=== PATIENT | female | born 1950 | race Caucasian/White ===

== ENCOUNTER 2017-06-15 12:07 | Inpatient (IN) | payer OTHER ==
[~2017-06-15] VITALS: Ht 165.1 cm; Wt 46.7 kg
[~2017-06-15 12:07] MED LIST: ALPRAZOLAM0.25 M1; ALPRAZOLAM0.25 M1 PO; AMBIEN5 MG PO; CIPRO500 MG PO; DEPAKOTE ER250 MG PO; EFFEXOR XR 3737.5 MG PO; GABAPENTIN300 MG PO; LISINOPRIL2.5 MG PO; LITHIUM CARBON300 M1 PO; MELATONIN3 MG PO; METOPROLOL SUCC25 MG PO; METOPROLOL TART25 MG PO; MIRALAX17 GM PO; PAXIL CR12.5 MG PO; REMERON15 M1 PO; SILENOR3 MG PO; ULTRAM50 MG PO; VALTREX500 MG PO; ZYPREXA5 MG PO; [UNRECOGNIZED DRUG - OTHER] PO
[2017-06-15] MEDS ORDERED: SODIUM CHLORIDE 0.9% 1000ML 1,000 ML IV ONE (19:30)
[2017-06-15 19:50] LABS: BASOPHILS % 0.4 % (0.0-1.0); EOSINOPHILS % 0.5 % (0.0-6.0); HEMATOCRIT 32.4 % (34.2-44.1); HEMOGLOBIN 10.7 g/dL (12.0-16.0); LYMPHOCYTES # (AUTO) 0.5 (1.0-3.2); LYMPHOCYTES % 8.1 % (18.0-39.1); MEAN CORPUSCULAR HEMOGLOBIN 30.6 pg (28-32); MEAN CORPUSCULAR VOLUME 92.6 fL (81-99); MONOCYTES # (AUTO) 1.6 (0.2-0.8); NEUTROPHILS # (AUTO) 2.6 (2.1-6.9); NEUTROPHILS % 47.8 % (38.7-80.0); PLATELET COUNT 107 x10e3/uL (140-360); RED CELL DISTRIBUTION WIDTH 14.9 % (11.7-14.4)
[2017-06-15 20:10] LABS: ALANINE AMINOTRANSFERASE 29 IU/L (0-55); ALBUMIN 2.7 g/dL (3.5-5.0); ALBUMIN/GLOBULIN RATIO 0.8 (0.8-2.0); ALKALINE PHOSPHATASE 234 IU/L (40-150); ANION GAP 14.1 mmol/L (8-16); BLOOD UREA NITROGEN 14 mg/dL (7-26); BUN/CREATININE RATIO 19 (6-25); CALCIUM 9.7 mg/dL (8.4-10.2); CARBON DIOXIDE 24 mmol/L (22-29); CHLORIDE 101 mmol/L (98-107); CREATINE KINASE 39 IU/L (29-168); CREATININE, SERUM 0.75 mg/dL (0.57-1.11); EST GLOMERULAR FILTRATION RATE > 60 ML/MIN (60-); GLUCOSE 114 mg/dL (74-118); POTASSIUM 4.1 mmol/L (3.5-5.1); SODIUM 135 mmol/L (136-145)
[2017-06-15 20:16] LABS: BILIRUBIN,URINE NEGATIVE (NEGATIVE); CLARITY,URINE CLEAR (CLEAR); COLOR,URINE YELLOW (YELLOW); KETONES,URINE NEGATIVE (NEGATIVE); LEUKOCYTE ESTERASE ,URINE 1+ (NEGATIVE); NITRITE,URINE NEGATIVE (NEGATIVE); PROTEIN,URINE DIPSTICK NEGATIVE (NEGATIVE); URINE UROBILINOGEN 0.2 mg/dL (0.2 - 1)
[2017-06-15 20:28] LABS: EPITHELIAL CELLS,URINE RARE /LPF; RENAL EPITHELIAL CELLS,URINE FEW
[2017-06-15 20:32] LABS: FREE THYROXINE INDEX 2.3867 (1.4-3.8); THYROID STIMULATING HORMONE 0.941 uIU/mL (0.350-4.940)
[2017-06-15 21:09] LABS: EOSINOPHILS % (MANUAL) 1 % (0-7); HYPOCHROMASIA SLIGHT; LYMPHOCYTES % (MANUAL) 12 % (19-48); METAMYELOCYTES % (MANUAL) 3 % (0-0); MONOCYTES % (MANUAL) 18 % (3.4-9.0); NEUTROPHILS % (MANUAL) 65 % (40-74); RBC MORPHOLOGY COMMENT NORMAL; STOMATOCYTES SLIGHT
[2017-06-15 21:10] LABS: PLATELET ESTIMATE SLIGHTLY DECREASED; PLATELET MORPHOLOGY COMMENT NORMAL
[2017-06-15] MEDS ORDERED: ACETAMINOPHEN 325 MG TAB PO STA (21:14)
--- NOTE | 2017-06-15 21:44 | Diagnostic Imaging Report ---
EXAM: CHEST SINGLE (NOT PORTABLE), AP 1 view INDICATION: Nerve pain, fell a few weeks ago COMPARISON: PA and lateral view of the chest March 11, 2016 FINDINGS: LINES/TUBES: Stable position right internal jugular vein chest port. Interval placement of left approach triple lead cardiac device. LUNGS: No consolidations or edema. Stable mild biapical pleural-parenchymal scarring. PLEURA: No effusions or pneumothorax. HEART AND MEDIASTINUM: Normal size and contour. BONES AND SOFT TISSUES: No acute findings. IMPRESSION: No acute thoracic abnormality. Signed by: Dr. Khadra Matson M.D. on 06/15/2017 9:40 PM
--- NOTE | 2017-06-15 21:49 | Diagnostic Imaging Report ---
EXAM: CERVICAL 3 VIEWS, AP, lateral and open mouth odontoid view DATE: 06/15/2017 8:10 PM Time stamp on exam: 2018 hours INDICATION: Follow a few weeks ago, nerve pain COMPARISON: CT of the neck August 05, 2016 FINDINGS: BONES: On the lateral view, the cervical spine is visualized from the skull base to C7. Limited odontoid view. Stable grade 1 anterolisthesis of C3 on C4 and C4 on C5. No displaced fractures. No lytic or blastic lesions. DISCS: Stable marked degenerative disc predominantly C3-C7. JOINTS: The facet joints are unremarkable. SOFT TISSUES: Partially visualized right upper chest port and left approach cardiac device. IMPRESSION: No acute cervical spine radiographic findings. If there is clinical concern for nerve compression given patient's underlying significant degenerative changes, consider MRI of the cervical spine. Signed by: Dr. Khadra Matson M.D. on 06/15/2017 9:45 PM
--- NOTE | 2017-06-15 21:57 | Diagnostic Imaging Report ---
EXAM: THORACIC SPINE 2VW, LUMBAR 3 VIEW, AP and lateral and coned lateral view DATE: 06/15/2017 7:19 PM Time stamp on exam: 2035 hours INDICATION: Fell a few weeks ago, now losing feeling in hands and in pain COMPARISON: PA and lateral view of the chest March 11, [address] of the abdomen and pelvis October 21, 2016 FINDINGS: BONES: There are 5 lumbar-type vertebral bodies. Age-indeterminate compression fracture of L1 vertebral body with approximately 50% loss of vertebral body height. Stable mild loss of height of the L4 superior endplate. DISCS: The disc-spaces are well-maintained. JOINTS: The facet joints are unremarkable. SOFT TISSUES: Right upper chest port and left approach cardiac device. IMPRESSION: Age indeterminant compression fracture of the L1 vertebral body with approximately 50% loss of vertebral body height. This is a new finding since PA and lateral view of the chest March 11, 2016. Signed by: Dr. Khadra Matson M.D. on 06/15/2017 9:53 PM
[2017-06-15] MEDS ORDERED: CEFTRIAXONE SOD 1 GM VIAL IV SCH (22:15)
[2017-06-15] MEDS ORDERED: SODIUM CHLORIDE 0.9% 1000ML 1,000 ML IV SCH (22:55)
[2017-06-15] MEDS ORDERED: ACETAMINOPHEN 325 MG TAB PO PRN (23:00)
[2017-06-15] MEDS ORDERED: ONDANSETRON HCL INJ 2 MG/ML VIAL IV PRN (23:00)
--- NOTE | 2017-06-15 23:43 | Diagnostic Imaging Report ---
Examination: CT LUMBAR SPINE WITHOUT CONTRAST History: Fall 3 weeks ago. Low back pain. Comparison studies: X-ray of lumbar spine performed June 15, 2017. Technique: Axial images were obtained through the lumbar spine from 1. Coronal and sagittal reconstructions obtained from the axial data. Intravenous contrast: None Findings: The usual 5 non-rib bearing lumbar vertebral bodies are present. Alignment: Normal lordosis. No scoliosis. Soft tissues: No abnormalities. Paraspinal muscles: Unremarkable. Sacroiliac joints: No degenerative changes. Vertebrae: No infection or neoplasm. Acute to subacute fracture of the L1 vertebral body with approximately 66% height loss. There is retropulsion of the posterior superior endplate by approximately 4.5 mm, which results in mild canal stenosis. There is a superior endplate Schmorl's node of the L4 vertebral body. Degenerative changes: L1-L2: No abnormalities. L2-L3: No abnormalities. L3-L4: No abnormalities. L4-L5: Mild diffuse disc bulge results in mild bilateral neural foraminal narrowing. No canal stenosis. L5-S1: Grade I anterolisthesis without pars defect. Uncovering of a mild diffuse disc bulge results in mild bilateral neural foraminal narrowing. No canal stenosis. IMPRESSION: 1. Acute subacute fracture of the L1 vertebral body with proximally 66% loss of height and mild canal stenosis at L1 due to bony retropulsion. 2. Degenerative changes at L4-5 and L5-S1, as above. Signed by: Dr. Yoana Salinas M.D. on 06/15/2017 11:40 PM
[2017-06-16] VITALS (8 sets, daily range): BP systolic 99–117; BP diastolic 54–63
--- OUTSIDE RECORDS SUMMARY | 2017-06-16 00:06 | XMS REPORT ---
[facility] Address Unknown Phone Unavailable Care Team Providers Care Associate Professor Of Counseling Name Role Phone MARTIN BRANHAM Unavailable Unavailable Problems This patient has no known problems. Allergies, Adverse Reactions, Alerts This patient has no known allergies or adverse reactions. Medications This patient has no known medications. Results Test Description Test Time Test Comments Text Results Atomic Results Result Comments CT LUMBAR SPINE WO [place] [address] Patient Name: MARQUES WOLF MR #: [id number] : 1950 Age/Sex: 67/F Req #: [id number] Adm Physician: Ordered by: WILEY BRADSHAW MD Report # : [id number] Location: ER Room/Bed: Procedure: [id number] CT/CT LUMBAR SPINE WO Exam Date: Exam Time: REPORT STATUS: Signed Examination: CT LUMBAR SPINE WITHOUT CONTRAST History: Fall 3 weeks ago. Low back pain. Comparison studies: X-ray of lumbar spine performed June 15, 2017. Technique: Axial images were obtained through the lumbar spine from 1. Coronal and sagittal reconstructions obtained from the axial data. Intravenous contrast: None Findings: The usual 5 non-rib bearing lumbar vertebral bodies are present. Alignment: Normal lordosis. No scoliosis. Soft tissues: No abnormalities. Paraspinal muscles: Unremarkable. Sacroiliac joints: No degenerative changes. Vertebrae: No infection or neoplasm. Acute to subacute fracture of the L1 vertebral body with approximately 66% height loss. There is retropulsion of the posterior superior endplate by approximately 4.5 mm, which results in mild canal stenosis. There is a superior endplate Schmorl's node of the L4 vertebral body. Degenerative changes: L1-L2: No abnormalities. L2-L3: No abnormalities. L3-L4: No abnormalities. L4-L5: Mild diffuse disc bulge results in mild bilateral neural foraminal narrowing. No canal stenosis. L5-S1: Grade I anterolisthesis without pars defect. Uncovering of a mild diffuse disc bulge results in mild bilateral neural foraminal narrowing. No canal stenosis. IMPRESSION: 1. Acute subacute fracture of the L1 vertebral body with proximally 66% loss of height and mild canal stenosis at L1 due to bony retropulsion. 2. Degenerative changes at L4-5 and L5-S1, as above. Signed by: Dr. Yoana Salinas M.D. on 06/15/2017 11:40 PM Dictated By: YOANA TURCIOS MD 39 COPY TO: WILEY BRADSHAW MD CERVICAL 3 VIEWS [place] [address] Patient Name: MARQUES WOLF MR #: [id number] : 1950 Age/Sex: 67/F Req #: [id number] [facility] Physician: Ordered by: WILEY BRADSHAW MD Report #: [id number] Location: ER Room/Bed: Procedure: [id number] DX/CERVICAL 3 VIEWS Exam Date: 06/15/17 Exam Time: 2035 REPORT STATUS: Signed EXAM: CERVICAL 3 VIEWS, AP, lateral and open mouth odontoid view DATE: 06/15/2017 8:10 PM Time stamp on exam: 2018 hours INDICATION: Follow a few weeks ago, nerve pain COMPARISON: CT of the neck August 05, 2016 FINDINGS: BONES: On the lateral view, the cervical spine is visualized from the skull base to C7. Limited odontoid view. Stable grade 1 anterolisthesis of C3 on C4 and C4 on C5. No displaced fractures. No lytic or blastic lesions. DISCS: Stable marked degenerative disc predominantly C3-C7. JOINTS: The facet joints are unremarkable. SOFT TISSUES: Partially visualized right upper chest port and left approach cardiac device. IMPRESSION: No acute cervical spine radiographic findings. If there is clinical concern for nerve compression given patient's underlying significant degenerative changes, consider MRI of the cervical spine. Signed by: Dr. Avila Matson M.D. on 06/15/2017 9:45 PM Dictated By: AVILA MATSON MD 44 Transcribed By: SUDHIR on 06/15/172144 COPY TO: WILEY BRADSHAW MD CHEST SINGLE (NOT PORTABLE) [place] [address] Patient Name: MARQUES WOLF MR #: [id number] : 1950 Age/Sex: 67/F Req #: [id number] Adm Physician: Ordered by: WILEY BRADSHAW MD Report #: [id number] Location: ER Room/Bed: ___ Procedure: [id number] DX/CHEST SINGLE (NOT PORTABLE) Exam Date: 06/15/17 Exam Time: 2035 REPORT STATUS: Signed EXAM : CHEST SINGLE (NOT PORTABLE), AP 1 view INDICATION: Nerve pain, fell a few weeks ago COMPARISON: PA and lateral view of the chest March 11, 2016 FINDINGS: LINES/TUBES: Stable position right internal jugular vein chest port. Interval placement of left approach triple lead cardiac device. LUNGS: No consolidations or edema. Stable mild biapical pleural-parenchymal scarring. PLEURA: No effusions or pneumothorax. HEART AND MEDIASTINUM : Normal size and contour. BONES AND SOFT TISSUES: No acute findings. IMPRESSION: No acute thoracic abnormality. Signed by: Dr. Avila Matson M.D. on 06/15/2017 9:40 PM Dictated By: AVILA MATSON MD 39 Transcribed By: SUDHIR on 06/15/172139 COPY TO: WILEY BRADSHAW MD LUMBAR 3 VIEW [place] [address] Patient Name: MARQUES WOLF MR #: [id number] : 1950 Age/Sex: 67/F Req #: [id number] Adm Physician: Ordered by: WILEY BRADSHAW MD Report #: [id number] Location: ER Room/Bed: Procedure: [id number] DX/LUMBAR 3 VIEW Exam Date: 06/15/17 Exam Time : 2035 REPORT STATUS: Signed EXAM: THORACIC SPINE 2VW, LUMBAR 3 VIEW, AP and lateral and coned lateral view DATE: 06/15/2017 7:19 PM Time stamp on exam: 2035 hours INDICATION: Fell a few weeks ago, now losing feeling in hands and in pain COMPARISON: PA and lateral view of the chest March 11, [address] of the abdomen and pelvis October 21, 2016 FINDINGS: BONES : There are 5 lumbar-type vertebral bodies. Age-indeterminate compression fracture of L1 vertebral body with approximately 50% loss of vertebral body height. Stable mild loss of height of the L4 superior endplate. DISCS: The disc-spaces are well-maintained. JOINTS: The facet joints are unremarkable. SOFT TISSUES: Right upper chest port and left approach cardiac device. IMPRESSION: Age indeterminant compression fracture of the L1 vertebral body with approximately 50% loss of vertebral body height. This is a new finding since PA and lateral view of the chest March 11, 2016. Signed by: Dr. Avila Matson M.D. on 06/15/2017 9:53 PM Dictated By: AVILA MATSON MD 52 Transcribed By: SUDHIR on 06/15/172152 COPY TO: WILEY BRADSHAW MD THORACIC SPINE 2VW [place] [address] Patient Name: MARQUES WOLF MR #: [id number] : 1950 Age/Sex: 67/F Req #: [id number] Adm Physician: Ordered by: WILEY BRADSHAW MD Report # : [id number] Location: ER Room/Bed: Procedure: [id number] DX/THORACIC SPINE 2VW Exam Date: 06/15/17 Exam Time: 2035 REPORT STATUS: Signed EXAM: THORACIC SPINE 2VW, LUMBAR 3 VIEW, AP and lateral and coned lateral view DATE: 06/15/2017 7:19 PM Time stamp on exam: 2035 hours INDICATION: Fell a few weeks ago, now losing feeling in hands and in pain COMPARISON: PA and lateral view of the chest March 11, [address] of the abdomen and pelvis October 21, 2016 FINDINGS : BONES: There are 5 lumbar-type vertebral bodies. Age-indeterminate compression fracture of L1 vertebral body with approximately 50% loss of vertebral body height. Stable mild loss of height of the L4 superior endplate. DISCS: The disc-spaces are well-maintained. JOINTS: The facet joints are unremarkable. SOFT TISSUES: Right upper chest port and left approach cardiac device. IMPRESSION: Age indeterminant compression fracture of the L1 vertebral body with approximately 50% loss of vertebral body height. This is a new finding since PA and lateral view of the chest March 11, 2016. Signed by: Dr. Avila Matson M.D. on 06/15/2017 9 :53 PM Dictated By: AVILA MATSON MD 52 Transcribed By: SUDHIR on 06/15/172152 COPY TO: WILEY BRADSHAW MD
[2017-06-16] MEDS ORDERED: TRAMADOL HCL 50 MG TAB PO PRN (00:30)
[2017-06-16] MEDS ORDERED: TRAMADOL HCL 50 MG TAB PO ONE (00:30)
[2017-06-16] MEDS ORDERED: TRAMADOL HCL 50 MG TAB ONE (00:44)
[2017-06-16] MEDS ORDERED: OLANZAPINE15 MG PO (02:28)
[2017-06-16] MEDS ORDERED: LISINOPRIL 2.5 MG TAB PO SCH (09:00)
[2017-06-16] MEDS ORDERED: VALACYCLOVIR HCL 500 MG TAB PO SCH (09:00)
[2017-06-16] MEDS ORDERED: METOPROLOL SUCCINATE 25 MG TAB XL PO SCH ×2 (09:00→21:00)
[2017-06-16] MEDS ORDERED: VENLAFAXINE HCL 37.5MG XR CAP PO SCH (09:00)
[2017-06-16 09:22] LABS: BASOPHILS % 0.5 % (0.0-1.0); EOSINOPHILS % 0.7 % (0.0-6.0); HEMATOCRIT 28.5 % (34.2-44.1); HEMOGLOBIN 9.4 g/dL (12.0-16.0); LYMPHOCYTES # (AUTO) 0.7 (1.0-3.2); LYMPHOCYTES % 11.5 % (18.0-39.1); MEAN CORPUSCULAR HEMOGLOBIN 30.7 pg (28-32); MEAN CORPUSCULAR VOLUME 93.1 fL (81-99); MONOCYTES # (AUTO) 1.7 (0.2-0.8); MONOCYTES % 29.7 % (4.4-11.3); NEUTROPHILS # (AUTO) 2.4 (2.1-6.9); NEUTROPHILS % 42.9 % (38.7-80.0); PLATELET COUNT 93 x10e3/uL (140-360); RED BLOOD COUNT 3.06 x10e6/uL (3.6-5.1)
[2017-06-16 09:48] LABS: ALANINE AMINOTRANSFERASE 26 IU/L (0-55); ALBUMIN 2.1 g/dL (3.5-5.0); ALBUMIN/GLOBULIN RATIO 0.7 (0.8-2.0); ALKALINE PHOSPHATASE 191 IU/L (40-150); ANION GAP 9.8 mmol/L (8-16); BLOOD UREA NITROGEN 11 mg/dL (7-26); BUN/CREATININE RATIO 16 (6-25); CALCIUM 8.8 mg/dL (8.4-10.2); CARBON DIOXIDE 23 mmol/L (22-29); CHLORIDE 106 mmol/L (98-107); CREATININE, SERUM 0.68 mg/dL (0.57-1.11); EST GLOMERULAR FILTRATION RATE > 60 ML/MIN (60-); GLUCOSE 129 mg/dL (74-118); POTASSIUM 3.8 mmol/L (3.5-5.1); SODIUM 135 mmol/L (136-145)
[2017-06-16] MEDS ORDERED: VENLAFAXINE HCL 75 MG CAPCR PO SCH (10:00)
[2017-06-16] MEDS: GABAPENTIN 100 MG CAP PO SCH ×3 (10:04→20:46)
[2017-06-16] MEDS: SENNOSIDES 8.6 MG TAB PO SCH ×2 (10:04→16:02)
[2017-06-16] MEDS ORDERED: FLUVOXAMINE MAL25 MG PO (10:21)
[2017-06-16] MEDS: HYDROCODONE/APAP 7.5MG-325MG 1 EA TAB PO PRN ×2 (10:30→14:59)
--- NOTE | 2017-06-16 10:49 | History and Physical ---
PRIMARY CARE PHYSICIAN: Dr. Vicente Cisneros CHIEF COMPLAINT: Status post fall approximately 4 weeks ago with progressive pain, subsequently diagnosed with compression fracture of L1 with 50% to 60% compression of lumbar spine. This is a 67-year-old female with B-cell lymphoma. The patient has had chemotherapy in the past. The last was in January. The patient also has a history of psychiatric disorder. She is on multiple medications from a psychiatrist. The patient came in because of intractable pain to the lumbar spine area. The patient had a lumbar spine x-ray and subsequent CT scan of the L-spine. The CT scan of the lumbar spine showed the patient had acute suspected fracture of L1 vertebral body with approximately 50% height loss. There is also retropulsion of the posterior inferior endplate by approximately 4.5 mm which results in mild canal stenosis. There is also superior endplate of the L4 vertebral body. The patient is stable other than the pain at this time. PAST MEDICAL HISTORY: B-cell lymphoma. Cardiomyopathy with left upper chest biventricular defibrillator. Major depression. Chronic anemia. Progressive weight loss, hypertension, insomnia, peripheral neuropathy bilaterally. Bipolar, schizophrenia. PAST SURGICAL HISTORY: Neck mass biopsy. Biventricular defibrillator placement, left upper chest area. Port-A-Cath placement of right upper chest. SOCIAL HISTORY: The patient lives at home with her daughter. She does not smoke or use recreational drugs. ALLERGIES: NO KNOWN ALLERGIES. HOME MEDICATIONS: List reviewed. REVIEW OF SYSTEMS: As mentioned above. PHYSICAL EXAMINATION VITAL SIGNS: T-max was 100.8, blood pressure 129/80, pulse rate 94, respirations 22. GENERAL: The patient is in no acute distress. She is awake. There is persistent pain. HEENT: Normocephalic, atraumatic, anicteric. NECK: Supple grossly. PULMONARY: Clear. CARDIOVASCULAR: Tachycardia. Left upper chest biventricular ICD. Right upper chest Port-A-Cath. ABDOMEN: Soft and unremarkable. EXTREMITIES: No cyanosis or edema. NEUROLOGIC: The patient moves all extremities with suspected paresthesia. LABORATORY: Chemistry: Sodium 135, potassium 4.1, chloride 101, bicarb 24, BUN 14, creatinine 0.7, glucose 114. AST 77, ALT 29, alkaline phosphatase 334. WBC 5.5, hemoglobin 10.7, hematocrit 32, platelets 107. Urinalysis WBC of 10. Blood culture times 2 sets pending. Urine culture was not done. IMAGING: As mentioned above. IMPRESSION 1. Suspected acute L1 compression fracture with 50% height loss. 2. Fever, most likely combination of positive B-cell lymphoma and urinary tract infection. 3. Intractable pain as above. 4. Baseline congestive heart failure. 5. Possible schizophrenia. 6. Status post implantable cardioverter-defibrillator placement. PLAN: Continue with antibiotic. Consultation with interventional radiology for possible kyphoplasty. Pulmonary . PT and OT. Pain management. Will monitor the patient closely during this admission. The patient will be admitted. Job#: [id number]
[2017-06-16] MEDS: MORPHINE SULFATE 2 MG/ML SYR IV PRN ×2 (11:32→16:29)
[2017-06-16 16:05] LABS: INR 1.23; PROTHROMBIN TIME 14.6 seconds (11.9-14.5)
[2017-06-16 16:06] LABS: PARTIAL THROMBOPLASTIN TIME 36.3 seconds (23.8-35.5)
[2017-06-16] MEDS ORDERED: OLANZAPINE 5 MG TAB PO SCH (21:00)
[2017-06-16] MEDS ORDERED: ZOLPIDEM TARTRATE 5 MG TAB PO PRN (21:00)
[2017-06-16] MEDS ORDERED: OLANZAPINE 15 MG PO SCH (21:00)
[2017-06-16] MEDS: ACETAMINOPHEN 325 MG TAB PO PRN (23:16)
[2017-06-16] MEDS: CEFTRIAXONE SOD 1 GM VIAL IV SCH (23:16)
[2017-06-17] VITALS: BP 143/71
[2017-06-17] MEDS: MORPHINE SULFATE 2 MG/ML SYR IV PRN (00:46)
[2017-06-17 04:00] VITALS: BP 105/62
[2017-06-17 08:00] VITALS: BP 116/66
[2017-06-17 08:55] VITALS: BP 116/66
[2017-06-17] MEDS: ACETAMINOPHEN 325 MG TAB PO PRN (08:55)
[2017-06-17] MEDS: SENNOSIDES 8.6 MG TAB PO SCH ×2 (09:00→18:30)
[2017-06-17] MEDS: GABAPENTIN 100 MG CAP PO SCH ×3 (09:00→21:00)
[2017-06-17] MEDS ORDERED: CEFAZOLIN SOD 1 GM/NS 50ML 50 ML IV ONE (10:00)
[2017-06-17] MEDS ORDERED: BUPIVACAINE 0.25% 30ML SDV INJ ONE (10:02)
[2017-06-17] MEDS ORDERED: BETAMETHASONE DISODIUM PHOS 6 MG/ML VIAL ONE (10:02)
[2017-06-17] MEDS ORDERED: CEFAZOLIN SOD 1 GM VIAL IV NR (10:30)
[2017-06-17] MEDS ORDERED: SODIUM CHLORIDE 0.9% 500ML 1,000 ML ONE (10:56)
[2017-06-17] MEDS ORDERED: LIDOCAINE HCL 2% LOCAL 20 ML VIAL ONE (10:56)
[2017-06-17] MEDS ORDERED: MIDAZOLAM HCL 2 MG/2 ML VIAL ONE (11:26)
[2017-06-17] MEDS ORDERED: FENTANYL CITRATE/PF 100MCG/2 ML INJ ONE (11:26)
[2017-06-17 16:51] VITALS: BP 103/58
[2017-06-17 20:00] VITALS: BP 108/60
[2017-06-17] MEDS: HYDROCODONE/APAP 7.5MG-325MG 1 EA TAB PO PRN (22:19)
[2017-06-17] MEDS: CEFTRIAXONE SOD 1 GM VIAL IV SCH (22:19)
[2017-06-18] VITALS: BP 93/62
[2017-06-18 04:00] VITALS: BP 102/57
[2017-06-18] MEDS: GABAPENTIN 100 MG CAP PO SCH (09:00)
[2017-06-18] MEDS: SENNOSIDES 8.6 MG TAB PO SCH (09:51)
[2017-06-18 09:52] VITALS: BP 98/54
[2017-06-18 10:01] VITALS: BP 98/54
--- NOTE | 2017-06-18 10:11 | Discharge Summary ---
PRIMARY CARE PHYSICIAN: Dr. Vicente Cisneros FINAL DIAGNOSES 1. Compression fracture of L1 lumbar vertebra. 2. Intractable back pain. 3. Status post L1 kyphoplasty SUMMARY: The patient is a 67-year-old female with large B-cell lymphoma. She fell at home about 2 weeks ago and was having some intractable back pain that progressed to where she was not able to ambulate. The patient came in with intractable pain. L1 compression fracture with height loss of approximately greater than 50%. The patient was not able to ambulate. status. The patient is stable. She was discharged home today and will follow up as an outpatient. She will continue with her home medications. New prescriptions are Tylenol No. 3 one q.6 h. p.r.n. for pain, Senna-S 1 tablet b.i.d., Zofran ODT p.r.n. for nausea and vomiting, Keflex 500 mg b.i.d. for 5 days to treat the rest of her urinary tract infection, which she already has as an outpatient. The patient is stable for discharge home and will follow up as an outpatient with Dr. Vicente Cisneros. Home health has been arranged for PT, OT and intermediate evaluation. The patient is stable for discharge home today. Job#: [id number]
[2017-06-18 13:24] VITALS: BP 109/61
--- NOTE | 2017-06-23 10:29 | Diagnostic Imaging Report ---
History:67 female with history of fall , pacemaker and lymphoma found to have L1 compression fracture on CT. Patient failing conservative management. Comparison studies:CT Lumbar Spine 06/15/17 Procedure L1 Vertebral Augmentation , Lumbar Interlaminar RENEE Codes: ,10003 Percutaneous vertebral augmentation, 1 vertebral body, unilateral or bilateral cannulation, inclusive of all imaging guidance; lumbar , , , , ,15454 Epidural steroid injection , lumbar or sacral,79887 Flouroscopic Guidance Spinal (RENEE),94134 Moderate Sedation provided by the same physician performing the diagnostic or therapeutic service that the sedation supports, for patients 5 years of age or older for the first 30 minutes,61887 each additional 15 minutes of intraservice time Sedation: Moderate sedation administered by interventional radiology nurse under supervision of the interventional radiologist with continuous hemodynamic monitoring for 45 minutes. Physician: Fredy Langley MD Medications: Fentanyl 50mg IV , Versed 2 mg IV Antibiotics: Ancef 1 gm IV administered by slow infusion 15 prior to start of case. Flouroscopy : 5.1 minutes Contrast: 2 ml Radiation exposure:653.7 cGycm2 Technique: Following informed written consent, patient was placed in a prone position on the angiography table. According to universal protocol, preprocedural time-out was performed with team members agreeing on patient identity, correct site and procedure to be done. The skin was clean, prepped and draped in the usual sterile fashion. Director Of Clinical Services images were obtained. Local and periosteal anesthesia was injected and conscious sedation was administered. Then the L1 vertebral body was accessed under fluoroscopic guidance using a left unipedicular approach. Cavity creation was performed using an inflatable balloon tamp. Then under fluoroscopic guidance 3 cc's of [place] HV PMMA was injected into the vertebral body. No cement extravasation was seen. Needle was then removed and hemostasis was acquired by manual compression. The attention was turned the epidural steroid injection for chronic component of back pain. A 21 Gauge Touhy needle was advanced to the epidural space at L2-3 with loss of resistance technique. 2cc's of Betamethasone combined with 5cc's Bupivacine was injected into the lumbar epidural space. A sterile dressing was applied. Procedure was well tolerated and the patient remained neurologically intact and unchanged during and following the procedure. Findings: L1 compression fracture. Post procedure imaging demonstrates bilateral distribution of PMMA without cement extravasation. Impression: 1. L1 vertebral augmentation with inflatable balloon tamp, technically and clinically successful. 2. Per PQRS criteria, patient should be screened for osteoporosis. 3. Successful Interlaminar Epidural steroid injection to treat non-fracture related components of chronic back pain. Signed by: Dr. Fredy Langley M.D. on 06/18/2017 4:12 PM
== END 2017-06-18 14:05 | disposition home or self-care (01) | DRG 478 ==
LOC: ER 12:07 → UNDOADMIN 06-16 00:03 → ERHOLD 06-16 00:03 → MED/SURG 06-16 01:48
PROVIDERS: ADMIT Internal Medicine; ATTEND Internal Medicine
PROC: 0QS03ZZ Reposition Lumbar Vertebra, Percutaneous Approach (ICD-10-PCS; principal; 2017-06-16)
PROC: 0QU03JZ Supplement Lumbar Vertebra with Synthetic Substitute, Percutaneous Approach (ICD-10-PCS; 2017-06-16)
PROC: 0QB03ZX Excision of Lumbar Vertebra, Percutaneous Approach, Diagnostic (ICD-10-PCS; 2017-06-16)
DX: S32.010A Wedge compression fracture of first lumbar vertebra, initial encounter for closed fracture (principal); C83.30 Diffuse large B-cell lymphoma, unspecified site; I42.9 Cardiomyopathy, unspecified; I11.0 Hypertensive heart disease with heart failure; I50.9 Heart failure, unspecified; G89.29 Other chronic pain; R26.9 Unspecified abnormalities of gait and mobility
CPT/HCPCS: 22511; 36415; 62322; 71045; 72040; 72070; 72100; 72131; 74470; 77001; 80053; 81001; 82550; 82553; 82948; 83605; 84436; 84443; 84479; 84484; 85025; 85610; 85730; 87040; 87071; 87205; 88305; 88307; 88311; 93005; 99284; C1727; J0690; J0696; J0720; J2001; J2250; J2270; J7030; J7040

== ENCOUNTER 2017-06-23 19:20 | Inpatient (IN) | payer OTHER ==
[~2017-06-23] VITALS: Ht 152.4 cm; Wt 42.2 kg
[~2017-06-23 19:20] MED LIST changes: +FLUVOXAMINE MAL25 MG PO; +OLANZAPINE15 MG PO
--- OUTSIDE RECORDS SUMMARY | 2017-06-23 19:22 | XMS REPORT | Continuity of Care Document ---
Author Author [facility] Organization [facility] Address [address] [place] [address] Phone Unavailable Care Team Providers Care Optical Fabrication Technician Name Role Phone GIOVANY HEWITT MD PCP Insurance Providers Guarantor Marcy Wolf Address [address] [place] [address] Email [email or web address] Payer [employer] Policy Number [id number] Subscriber's Name Marcy Wolf Relationship 18 Self / Same As Patient Group Number [id number] Group Name [employer] - [employer] Advantage [employer]is Effective Date 17 Advance Directives Directive Response Recorded Date/Time Does the patient have an advance directive? No 06/16/17 2:03am If yes, is advance directive on file with [facility]? No 06/16/17 2:03am If not on file with [facility] will patient provide a copy? No 06/16/17 2:03am Do you have a Directive to Physician? No 06/15/17 4:02pm Do you have a Medical Power of Switchboard Troubleshooter? No 06/15/17 4:02pm Do you have an out of hospital Do Not Resuscitate Order? No 06/15/17 4:02pm Do you have any special needs we should be aware of? No 06/15/17 4:02pm Do you have a support person here with you today? Yes 06/15/17 4:02pm Did patient receive Notice of Privacy Practices? Yes 06/15/17 4:02pm Did patient receive patient rights and responsibilities? Yes 06/15/17 4:02pm Problems Medical Problem Onset Date Status Anxiety Unknown Bipolar 1 disorder, mixed 09/06/2015 Acute Chest pain Unknown Compression fracture of L1 lumbar vertebra Unknown Diphenhydramine overdose 09/06/2015 Acute Diphenhydramine poisoning 09/06/2015 Acute Fever Unknown Foreign body in ear Unknown Acute Generalized weakness Unknown Hypokalemia Unknown Hyponatremia 09/06/2015 Acute LBBB (left bundle branch block) Unknown Lymphoma 09/06/2015 Acute Overdose 09/06/2015 Acute UTI (urinary tract infection) Unknown Medications Current Home Medications Medication Dose Units Route Directions Days Qty Instructions Start Date Fluvoxamine Maleate 25 Mg Tablet 25 Mg Oral Bedtime Lisinopril 2.5 Mg Tablet 2.5 Mg Oral Daily 30 Tab Metoprolol Succinate 25 Mg Tab.er.24h 25 Mg Oral Daily Olanzapine 15 Mg Tablet 15 Mg Oral Bedtime Valacyclovir Hcl (Valtrex) 500 Mg Tab 500 Mg Oral Daily Zolpidem Tartrate (Ambien) 5 Mg Tablet 5 Mg Oral Bedtime as needed for Insomnia 30 Tab Past Home Medications Medication Directions Ordered Status Alprazolam 0.25 Mg Tab.rapdis, Discontinued Alprazolam 0.25 Mg Tab.rapdis, Mg Oral Every 4 Hours as needed for Anxiety Discontinued Ciprofloxacin Hcl (Cipro) 500 Mg Tablet, 500 Mg Oral Twice A Day Discontinued Doxepin Hcl (Silenor) 3 Mg Tablet, 3 Mg Oral Bedtime Discontinued Keybiotics , 1 Cap Oral Daily for Herbal Supplement Discontinued [place] Carbonate 300 Mg Tablet, 300 Mg Oral Twice A Day Discontinued Melatonin 3 Mg Tablet, 5 Mg Oral Bedtime Discontinued Metoprolol Tartrate 25 Mg Tablet, 25 Mg Oral Twice A Day Discontinued Olanzapine (Zyprexa) 5 Mg Tablet, 20 Mg Oral Bedtime Discontinued Paroxetine Hcl (Paxil Cr) 12.5 Mg Tabsr, 12.5 Mg Oral Daily Discontinued Venlafaxine Hcl (Effexor Xr 37.5MG Capcr*) 37.5 Mg Capcr, 150 Mg Oral Daily Discontinued Social History Social History Problem Response Recorded Date/Time Onset Date Status Hx Psychiatric Problems Y - DEPRESSION 06/16/2017 2:03am Not Applicable Not Applicable Hx Eating Disorder No 06/16/2017 2:03am Not Applicable Not Applicable Hx Substance Use Disorder No 06/16/2017 2:03am Not Applicable Not Applicable Hx Depression Yes 06/16/2017 2:03am Not Applicable Not Applicable Hx Alcohol Use No 06/16/2017 2:03am Not Applicable Not Applicable Hx Substance Use Treatment No 06/16/2017 2:03am Not Applicable Not Applicable Hx Physical Abuse No 06/16/2017 2:03am Not Applicable Not Applicable Smoking Status Start Date Stop Date Unknown if ever smoked Hospital Discharge Instructions No hospital discharge instruction information available. Plan of Care Discharge Date 06/18/17 2:05pm Disposition HOME, SELF-CARE Instructions/Education Provided Post Operative Pain Prescriptions See Medication Section Referrals GIOVANY HEWITT MD (Internal Medicine) Order Date: 1 Week Entered Date: 06/18/2017 12:56pm Address: [address] [place] [address] [phone] Additional Instructions/Education DIET TOLERATED ACTIVITY TOLERATED FOLLOW UP WITH PRIMARY DOCTOR IN 1 WEEK TAKE ALL MEDICATIONS PRESCRIBED NOTIFY DOCTOR FOR FEVER GREATER THAN 101, INCREASED PAIN NOT RELIEVED BY PAIN MEDICATIONS. Functional Status Query Response Date Recorded Assistive Devices Standard Walker June 16, 2017 2:44am Ambulation Ability Moderate Assistance June 16, 2017 2:44am Toileting Ability Minimum Assistance June 17, 2017 6:38pm Allergies, Adverse Reactions, Alerts No known allergies. Immunizations No immunization information available. Vital Signs Acute Vital Signs Vital Response Date/Time Temperature (Fahrenheit) 96.7 degrees F (97.6 - 99.5) 06/18/2017 1:24pm Pulse Pulse Rate (adult) 84 bpm (60 - 90) 06/18/2017 1:24pm Respiratory Rate 16 bpm (12 - 24) 06/18/2017 1:24pm Blood Pressure 109/61 mm Hg 06/18/2017 1:24pm Height 5 ft 5 in 06/15/2017 12:43pm Weight 103 lb 06/16/2017 2:31am Body Mass Index 17.1 kg/m^2 06/16/2017 2:31am Results Laboratory Results Test Name Result Units Flags Reference Collection Date/Time Result Date/ Time Comments White Blood Count 5.66 x10e3/uL 4.8-10.8 06/16/2017 9:2006/16/2017 9 :23am Red Blood Count 3.06 x10e6/uL L 3.6-5.1 06/16/2017 9:2006/16/2017 9: 23am Hemoglobin 9.4 g/dL L 12.0-16.0 06/16/2017 9:2006/16/2017 9:23am Hematocrit 28.5 % L 34.2-44.1 06/16/2017 9:2006/16/2017 9:23am Mean Corpuscular Volume 93.1 fL 81-99 06/16/2017 9:2006/16/2017 9: 23am Mean Corpuscular Hemoglobin 30.7 pg 28-32 06/16/2017 9:2006/16/2017 9:23am Mean Corpuscular Hemoglobin Concent 33.0 g/dL 31-35 06/16/2017 9:06/16/2017 9:23am Red Cell Distribution Width 15.0 % H 11.7-14.4 06/16/2017 9:202017 9:23am Platelet Count 93 x10e3/uL L 140-360 06/16/2017 9:2006/16/2017 9: 23am Neutrophils (%) (Auto) 42.9 % 38.7-80.0 06/16/2017 9:06/16/2017 9: 23am Lymphocytes (%) (Auto) 11.5 % L 18.0-39.1 06/16/2017 9:2006/16/2017 9 :23am Monocytes (%) (Auto) 29.7 % H 4.4-11.3 06/16/2017 9:2006/16/2017 9: 23am Eosinophils (%) (Auto) 0.7 % 0.0-6.0 06/16/2017 9:20am 06/16/2017 9: 23am Basophils (%) (Auto) 0.5 % 0.0-1.0 06/16/2017 9:20am 06/16/2017 9:23am IM GRANULOCYTES % 14.7 % H 0.0-1.0 06/16/2017 9:20am 06/16/2017 9:23am Neutrophils # (Auto) 2.4 2.1-6.9 06/16/2017 9:20am 06/16/2017 9:23am Lymphocytes # (Auto) 0.7 L 1.0-3.2 06/16/2017 9:20am 06/16/2017 9: 23am Monocytes # (Auto) 1.7 H 0.2-0.8 06/16/2017 9:20am 06/16/2017 9:23am Eosinophils # (Auto) 0.0 0.0-0.4 06/16/2017 9:20am 06/16/2017 9:23am Basophils # (Auto) 0.0 0.0-0.1 06/16/2017 9:20am 06/16/2017 9:23am Absolute Immature Granulocyte (auto 0.83 x10e3/uL H 0-0.1 06/16/2017 9: 20am 06/16/2017 9:23am Differential Total Cells Counted 100 06/15/2017 7:30pm 06/15/2017 9 :10pm Neutrophils % (Manual) 65 % 40-74 06/15/2017 7:30pm 06/15/2017 9:10pm Lymphocytes % (Manual) 12 % L 19-48 06/15/2017 7:30pm 06/15/2017 9:10pm Monocytes % (Manual) 18 % H 3.4-9.0 06/15/2017 7:30pm 06/15/2017 9:10pm Eosinophils % (Manual) 1 % 0-7 06/15/2017 7:30pm 06/15/2017 9:10pm Metamyelocytes % 3 % H 0-0 06/15/2017 7:30pm 06/15/2017 9:10pm Reactive Lymphocytes 1 06/15/2017 7:30pm 06/15/2017 9:10pm Platelet Estimate SLIGHTLY DECREASED 06/15/2017 7:30pm 06/15/2017 9 :10pm Platelet Morphology Comment NORMAL 06/15/2017 7:30pm 06/15/2017 9: 10pm Hypochromasia SLIGHT 06/15/2017 7:30pm 06/15/2017 9:10pm Stomatocytes SLIGHT 06/15/2017 7:30pm 06/15/2017 9:10pm Red Cell Morphology Comment NORMAL 06/15/2017 7:30pm 06/15/2017 9: 10pm Prothrombin Time 14.6 seconds H 11.9-14.5 06/16/2017 3:40pm 06/16/2017 4 :06pm Prothromb Time International Ratio 1.23 06/16/2017 3:40pm 2017 4:06pm Oral Anticoagulant Therapy INR Values: 1. Low Intensity Therapy 1.5 - 2.0 2. Moderate Intensity Therapy 2.0 - 3.0 3. High Intensity Therapy(1) 2.5 - 3.5 4. High Intensity Therapy(2) 3.0 - 4.0 5. Panic Value INR > 5.0 Activated Partial Thromboplast Time 36.3 seconds H 23.8-35.5 06/16/2017 3 :40pm 06/16/2017 4:06pm Urine Color YELLOW YELLOW 06/15/2017 8:00pm 06/15/2017 8:16pm Urine Clarity CLEAR CLEAR 06/15/2017 8:00pm 06/15/2017 8:16pm Urine Specific [place] 1.005 L 1.010-1.025 06/15/2017 8:00pm 2017 8:16pm Urine pH 7 5 - 7 06/15/2017 8:00pm 06/15/2017 8:16pm Urine Leukocyte Esterase 1+ H NEGATIVE 06/15/2017 8:00pm 06/15/2017 8: 16pm Urine Nitrite NEGATIVE NEGATIVE 06/15/2017 8:00pm 06/15/2017 8:16pm Urine Protein NEGATIVE NEGATIVE 06/15/2017 8:00pm 06/15/2017 8:16pm Urine Glucose (UA) NEGATIVE NEGATIVE 06/15/2017 8:00pm 06/15/2017 8: 16pm Urine Ketones NEGATIVE NEGATIVE 06/15/2017 8:00pm 06/15/2017 8:16pm Urine Urobilinogen 0.2 mg/dL 0.2 - 1 06/15/2017 8:00pm 06/15/2017 8: 16pm Urine Bilirubin NEGATIVE NEGATIVE 06/15/2017 8:00pm 06/15/2017 8: 16pm Urine Blood NEGATIVE NEGATIVE 06/15/2017 8:00pm 06/15/2017 8:16pm Urine WBC 6-10 /HPF H 0-5 06/15/2017 8:00pm 06/15/2017 8:28pm Urine RBC NONE /HPF 0-5 06/15/2017 8:00pm 06/15/2017 8:28pm Urine Bacteria NONE /HPF NONE 06/15/2017 8:00pm 06/15/2017 8:28pm Urine Epithelial Cells RARE /LPF NONE 06/15/2017 8:00pm 06/15/2017 8: 28pm Urine Renal Epithelial Cells FEW H NONE 06/15/2017 8:00pm 06/15/2017 8 :28pm Sodium Level 135 mmol/L L 136-145 06/16/2017 9:20am 06/16/2017 9:48am Potassium Level 3.8 mmol/L 3.5-5.1 06/16/2017 9:20am 06/16/2017 9:48am Chloride Level 106 mmol/L 98-107 06/16/2017 9:20am 06/16/2017 9:48am Carbon Dioxide Level 23 mmol/L 22-29 06/16/2017 9:20am 06/16/2017 9: 48am Anion Gap 9.8 mmol/L 8-16 06/16/2017 9:20am 06/16/2017 9:48am Blood Urea Nitrogen 11 mg/dL 7-06/16/2017 9:20am 06/16/2017 9:48am Creatinine 0.68 mg/dL 0.57-1.11 06/16/2017 9:20am 06/16/2017 9:48am BUN/Creatinine Ratio 16 6-25 06/16/2017 9:20am 06/16/2017 9:48am Estimat Glomerular Filtration Rate > 60 ML/MIN 60- 06/16/2017 9:20am 9:48am Ranges were taken from the National Kidney Disease Education Program and the National Kidney Foundation literature. Reference ranges: 60 or greater: Normal 16-59 (for 3 consecutive months): Chronic kidney disease 15 or less: Kidney failure Glucose Level 129 mg/dL H 74-118 06/16/2017 9:2006/16/2017 9:48am Calcium Level 8.8 mg/dL 8.4-10.2 06/16/2017 9:2006/16/2017 9:48am Bedside Glucose 214 mg/dL H 70-120 06/18/2017 12:06am 06/18/2017 12: 15am Meter ID: [id number] Lactic Acid Level 11.1 MG/DL 4.5-19.8 06/15/2017 9:20pm 06/15/2017 10: 00pm Total Bilirubin < 0.3 mg/dL 0.2-1.2 06/16/2017 9:2006/16/2017 9: 48am Aspartate Amino Transf (AST/SGOT) 73 IU/L H 5-34 06/16/2017 9:2006/16 9:48am Alanine Aminotransferase (ALT/SGPT) 26 IU/L 0-55 06/16/2017 9:20 9:48am Total Protein 5.0 g/dL L 6.5-8.1 06/16/2017 9:2006/16/2017 9:48am Albumin 2.1 g/dL L 3.5-5.0 06/16/2017 9:2006/16/2017 9:48am Globulin 2.9 g/dL 2.3-3.5 06/16/2017 9:2006/16/2017 9:48am Albumin/Globulin Ratio 0.7 L 0.8-2.0 06/16/2017 9:2006/16/2017 9: 48am Alkaline Phosphatase 191 IU/L H 40-150 06/16/2017 9:2006/16/2017 9: 48am Creatine Kinase 39 IU/L 29-168 06/15/2017 7:30pm 06/15/2017 8:11pm Creatine Kinase MB 1.60 ng/mL 0-5.0 06/15/2017 7:30pm 06/15/2017 8: 33pm Troponin I 0.022 ng/mL 0-0.300 06/15/2017 7:30pm 06/15/2017 8:33pm Free Thyroxine Index 2.3867 1.4-3.8 06/15/2017 7:30pm 06/15/2017 8: 33pm Thyroxine (T4) 8.73 ug/dL 4.5-10.9 06/15/2017 7:30pm 06/15/2017 8:33pm Our current method for Total T4 is not recommended for use as the only marker for evaluating patients for thyroid disorders. Triiodothyronine (T3) Uptake 27.34 % 22.5-37.0 06/15/2017 7:30pm 2017 8:33pm Thyroid Stimulating Hormone (TSH) 0.941 uIU/mL 0.350-4.940 06/15/2017 7: 30pm 06/15/2017 8:33pm Microbiology Results Procedure Source Organism/Result Collection Date/Time Result Date/Time Result Status Blood Culture Blood NO GROWTH AFTER 48 HOURS 9:35pm 06/17/2017 9:44pm Preliminary Procedures Procedure Status Date Provider(s) L VENTRIC PACING LEAD ADD-ON Completed 09/08/16 ENEDINA CASTILLO MD INSJ/RPLCMT DEFIB W/LEAD(S) Completed 09/08/16 ENEDINA CASTILLO MD X-ray of chest, single view Active 06/15/17 WILEY BRADSHAW MD Computed tomography of lumbar spine without contrast Active 06/15/17 WILEY BRADSHAW MD Encounters Encounter Location Arrival/Admit Date Discharge/Depart Date Attending Provider Discharged Inpatient [facility] 06/16/17 12:08am 2:05pm DEYSI STEVENS MD Discharged Inpatient (obs) [facility] 09/08/16 11:35am 9:47am ENEDINA CASTILLO MD
[2017-06-23] MEDS ORDERED: ACETAMINOPHEN 1000 MG/100 ML IV STA (19:38)
[2017-06-23] MEDS ORDERED: CEFTRIAXONE SOD 1 GM VIAL IV ONE (19:45)
[2017-06-23] MEDS ORDERED: SODIUM CHLORIDE 0.9% 1000ML 1,000 ML IV SCH (19:45)
--- NOTE | 2017-06-23 20:17 | Diagnostic Imaging Report ---
Portable chest x-ray CPT code 00610 INDICATION: Weakness, confusion COMPARISON: Chest x-ray 06/15/2017 FINDINGS: Frontal view of the chest obtained at 1951 hours. The cardiac silhouette is normal in size.. MediPort catheter and pacemaker/defibrillator wires are stable in position. The pulmonary vascular marking are normal. The lungs demonstrate no mass or infiltrate. There is trace and stable blunting of the right lateral costophrenic angle. The osseous structures are intact. Methylmethacrylate a lower thoracic spine vertebral body has been applied. IMPRESSION: 1. Trace blunting of the right lateral costophrenic angle is suggestive of pleural thickening or effusion. 2. No new cardiopulmonary process. Signed by: Dr. Austin Figueroa MD on 06/23/2017 8:13 PM
[2017-06-23] MEDS ORDERED: SODIUM CHLORIDE 0.9% 1000ML 1,000 ML IV ONE (21:30)
[2017-06-23 21:37] LABS: BASOPHILS % 0.2 % (0.0-1.0); EOSINOPHILS % 0.4 % (0.0-6.0); HEMATOCRIT 23.8 % (34.2-44.1); HEMOGLOBIN 7.8 g/dL (12.0-16.0); LYMPHOCYTES # (AUTO) 0.6 (1.0-3.2); LYMPHOCYTES % 12.1 % (18.0-39.1); MEAN CORPUSCULAR HEMOGLOBIN 29.9 pg (28-32); MEAN CORPUSCULAR HGB CONC 32.8 g/dL (31-35); MEAN CORPUSCULAR VOLUME 91.2 fL (81-99); MONOCYTES # (AUTO) 1.8 (0.2-0.8); MONOCYTES % 38.5 % (4.4-11.3); NEUTROPHILS # (AUTO) 1.6 (2.1-6.9); NEUTROPHILS % 36.1 % (38.7-80.0); PLATELET COUNT 59 x10e3/uL (140-360); RED BLOOD COUNT 2.61 x10e6/uL (3.6-5.1); RED CELL DISTRIBUTION WIDTH 15.7 % (11.7-14.4)
[2017-06-23 21:47] LABS: INFLUENZAE A&B ANTIGEN (RAPID) NEGATIVE (NEGATIVE)
[2017-06-23 21:51] LABS: ALANINE AMINOTRANSFERASE 42 IU/L (0-55); ALBUMIN 2.2 g/dL (3.5-5.0); ALBUMIN/GLOBULIN RATIO 0.7 (0.8-2.0); ALKALINE PHOSPHATASE 199 IU/L (40-150); ANION GAP 13.6 mmol/L (8-16); BLOOD UREA NITROGEN 25 mg/dL (7-26); BUN/CREATININE RATIO 35 (6-25); CALCIUM 8.9 mg/dL (8.4-10.2); CARBON DIOXIDE 23 mmol/L (22-29); CHLORIDE 99 mmol/L (98-107); CREATININE, SERUM 0.72 mg/dL (0.57-1.11); EST GLOMERULAR FILTRATION RATE > 60 ML/MIN (60-); GLUCOSE 115 mg/dL (74-118); POTASSIUM 3.6 mmol/L (3.5-5.1); SODIUM 132 mmol/L (136-145)
[2017-06-23 21:53] LABS: STREPTOCOCCUS GRP A ANTIGEN NEGATIVE (NEGATIVE)
[2017-06-23 22:11] LABS: BAND NEUTROPHILS % (MANUAL) 1 %; BLAST CELLS % MANUAL 1; HYPOCHROMASIA SLIGHT; LYMPHOCYTES % (MANUAL) 14 % (19-48); METAMYELOCYTES % (MANUAL) 3 % (0-0); MONOCYTES % (MANUAL) 29 % (3.4-9.0); MYELOCYTES % (MANUAL) 1 % (0-0); NEUTROPHILS % (MANUAL) 48 % (40-74)
[2017-06-23 22:12] LABS: PLATELET ESTIMATE MODERATELY DECREASED; PLATELET MORPHOLOGY COMMENT FEW GIANT; POIKILOCYTOSIS SLIGHT; RBC MORPHOLOGY COMMENT NORMAL
[2017-06-23 23:19] LABS: BILIRUBIN,URINE NEGATIVE (NEGATIVE); CLARITY,URINE CLEAR (CLEAR); COLOR,URINE YELLOW (YELLOW); KETONES,URINE NEGATIVE (NEGATIVE); LEUKOCYTE ESTERASE ,URINE NEGATIVE (NEGATIVE); NITRITE,URINE NEGATIVE (NEGATIVE); PROTEIN,URINE DIPSTICK NEGATIVE (NEGATIVE); URINE UROBILINOGEN 0.2 mg/dL (0.2 - 1)
[2017-06-23] MEDS ORDERED: SODIUM CHLORIDE 0.9% 50ML 50 ML ONE (23:43)
[2017-06-23] MEDS ORDERED: IOPAMIDOL 370 MG/ML 200 ML INFUS..BTL INJ ONE (23:44)
[2017-06-23] MEDS ORDERED: ACETAMINOPHEN 325 MG TAB PO PRN (23:45)
[2017-06-23] MEDS: CEFTRIAXONE SOD 1 GM VIAL IV SCH (23:45)
[2017-06-23] MEDS ORDERED: ONDANSETRON HCL INJ 2 MG/ML VIAL IV PRN (23:45)
[2017-06-24] VITALS (8 sets, daily range): BP systolic 90–115; BP diastolic 51–65
[2017-06-24] MEDS: CEFTRIAXONE SOD 1 GM VIAL IV SCH (00:02)
--- NOTE | 2017-06-24 00:56 | Diagnostic Imaging Report ---
History: Weakness, lymphoma, rule out metastases Comparison studies: None Technique: Axial images were obtained from the skull base to the vertex. Coronal and sagittal reconstructions obtained from the axial data. Intravenous contrast: 100 cc of Isovue 370 Findings: Scalp/skull: No abnormalities. No fractures, blastic or lytic lesions. Extra-axial spaces: No masses. No fluid collections. Brain sulci: Mildly prominent. Ventricles: Mild compensatory dilatation. No hydrocephalus. Parenchyma: No abnormal densities. No enhancing abnormalities. No masses, hemorrhage, acute or chronic cortical vascular insults. Sellar/suprasellar region: No abnormalities Craniocervical junction: Patent foramen magnum. No Chiari one malformation. Impression: 1. Mild generalized volume loss. 2. Otherwise, no abnormalities. 3. Specifically, no bone, meningeal or parenchymal lesions to suggest metastatic disease. Signed by: Dr. Yoel White M.D. on 06/24/2017 12:53 AM
[2017-06-24] MEDS: SODIUM CHLORIDE 0.9% 1000ML 1,000 ML IV SCH ×2 (01:32→09:10)
[2017-06-24] MEDS ORDERED: COLACE100 MG PO (02:03)
[2017-06-24] MEDS: KETOROLAC TROMETHAMINE 30 MG/ML VIAL IV PRN ×4 (03:59→23:45)
[2017-06-24 06:42] LABS: EOSINOPHILS % 0.7 % (0.0-6.0); HEMATOCRIT 23.2 % (34.2-44.1); LYMPHOCYTES # (AUTO) 0.4 (1.0-3.2); LYMPHOCYTES % 11.5 % (18.0-39.1); MEAN CORPUSCULAR HEMOGLOBIN 29.6 pg (28-32); MEAN CORPUSCULAR HGB CONC 31.9 g/dL (31-35); MEAN CORPUSCULAR VOLUME 92.8 fL (81-99); MONOCYTES # (AUTO) 1.3 (0.2-0.8); NEUTROPHILS # (AUTO) 1.1 (2.1-6.9); NEUTROPHILS % 34.3 % (38.7-80.0); PLATELET COUNT 58 x10e3/uL (140-360); RED CELL DISTRIBUTION WIDTH 15.9 % (11.7-14.4)
[2017-06-24 06:52] LABS: HEMOGLOBIN 7.4 g/dL (12.0-16.0)
[2017-06-24 07:27] LABS: ALANINE AMINOTRANSFERASE 46 IU/L (0-55); ALBUMIN 1.7 g/dL (3.5-5.0); ALBUMIN/GLOBULIN RATIO 0.7 (0.8-2.0); ALKALINE PHOSPHATASE 166 IU/L (40-150); ANION GAP 9.5 mmol/L (8-16); BLOOD UREA NITROGEN 18 mg/dL (7-26); BUN/CREATININE RATIO 30 (6-25); CALCIUM 8.6 mg/dL (8.4-10.2); CARBON DIOXIDE 20 mmol/L (22-29); CHLORIDE 113 mmol/L (98-107); EST GLOMERULAR FILTRATION RATE > 60 ML/MIN (60-); GLUCOSE 99 mg/dL (74-118); POTASSIUM 3.5 mmol/L (3.5-5.1); SODIUM 139 mmol/L (136-145)
[2017-06-24 09:55] LABS: % IRON SATURATION 29 % (15-50); IRON 50 ug/dL (50-170); TOTAL IRON BINDING CAPACITY 172 ug/dL (261-478); TRANSFERRIN 123 mg/dL (180-382)
[2017-06-24] MEDS: PANTOPRAZOLE 40 MG 10ML VIAL IV SCH (09:58)
[2017-06-24 10:24] LABS: FOLATE 15.8 ng/mL (7.0-15.4)
[2017-06-24 11:17] LABS: BAND NEUTROPHILS % (MANUAL) 5 %; LYMPHOCYTES % (MANUAL) 19 % (19-48); METAMYELOCYTES % (MANUAL) 4 % (0-0); MONOCYTES % (MANUAL) 28 % (3.4-9.0); MYELOCYTES % (MANUAL) 2 % (0-0); NEUTROPHILS % (MANUAL) 40 % (40-74); NUCLEATED RED BLOOD CELLS 3
[2017-06-24 11:18] LABS: PLATELET ESTIMATE MARKEDLY DECREASED; PLATELET MORPHOLOGY COMMENT FEW LARGE; RBC MORPHOLOGY COMMENT NORMAL
[2017-06-24 11:21] LABS: HYPOCHROMASIA MODERATE
[2017-06-24 11:22] LABS: ANISOCYTOSIS SLIG
[2017-06-24] MEDS: HYDROCODONE/APAP 5MG-325MG TAB PO PRN ×2 (13:30→20:45)
[2017-06-24] MEDS: METOPROLOL SUCCINATE 25 MG TAB XL PO SCH (16:59)
[2017-06-24] MEDS ORDERED: DEXAMETHASONE SOD PHOS 10 MG/1 ML VIAL IV NR (21:00)
[2017-06-24] MEDS ORDERED: SODIUM CHLORIDE 0.9% 250ML 250 ML IV ONE (21:00)
[2017-06-24] MEDS ORDERED: ZOLPIDEM TARTRATE 5 MG TAB PO PRN (21:00)
[2017-06-24] MEDS ORDERED: OLANZAPINE 15 MG PO SCH (21:00)
[2017-06-24] MEDS ORDERED: FUROSEMIDE INJ 10 MG/ML 2 ML VIAL IV SCH (21:00)
[2017-06-24] MEDS ORDERED: FAMOTIDINE 20 MG/2 ML VIAL IV NR (21:00)
--- NOTE | 2017-06-24 23:56 | History and Physical ---
CHIEF COMPLAINT: Increasing shortness of breath and chest pain, anorexia, progressive weight loss, debility. HISTORY: Patient is a 67-year-old female, was recently in the hospital on June 19, 2017, discharged on June 18, 2017. Patient with status post fall with compression fracture of L1 lumbar vertebra. Patient, subsequently, underwent L1 kyphoplasty. She did better, able to ambulate and did well. The patient basically went home. Continued with her home medication, Tylenol No. 3 per patient's request. She was supposed to see Dr. Vicente Cisneros, her primary care physician, as an outpatient for continue with her pain control. I requested home health for physical therapy, but the patient and both daughter refused to have any physical therapy or home health that she will be able to do for the patient. [facility] case making machine operator also advise, but the patient, the daughter absolutely refused and therefore, no home health was arranged. Apparently, patient went home and for the past week or so, she progressively worsened to the point where she is unable to walk. She has not followed up with her oncologist, Dr. Cota. Patient came in this time with increasing weakness. Her hemoglobin dropped down from 10.7 to 9.4 and then, subsequently 7.7, but, more importantly, patient's platelets also dropped down from 107 to 58. The patient is seemed to be pancytopenic. The patient is weak and having increasing shortness of breath. She has also complained of chest pain. Imaging in the emergency room, chest x-ray showed trace blunting of the right lateral costovertebral angle suggestive of pleural thickening, but no new cardiopulmonary process. CT of the chest, abdomen, and pelvis ordered with contrast still pending. The patient does have a defibrillator; therefore, no MRI can be done. Therefore, a CT scan of the lumbar spine with contrast ordered. The patient remained weak and with chest discomfort. Medication was ordered. PAST MEDICAL HISTORY: Including large B-cell lymphoma. Cardiomyopathy with left upper lobe biventricular defibrillator. Major depression. Adult failure to thrive. Chronic anemia. Progressive weight loss. Hypertension. Insomnia. Depression. Bipolar. Schizophrenia. Peripheral neuropathy. Patient did receive chemotherapy and radiation in recent past for B-cell lymphoma. PAST SURGICAL HISTORY: Including neck mass biopsy. Biventricular defibrillator placement in the left upper chest area. Right Port-A-Cath placement. SOCIAL HISTORY: Patient lives with her daughter. Patient does not smoke or drink alcohol regularly. ALLERGIES: NO KNOWN ALLERGIES. HOME MEDICATION: List is reviewed. REVIEW OF SYSTEMS: As mentioned above. PHYSICAL EXAMINATION VITAL SIGNS: Temperature was 102.3. Blood pressure 126/64. Pulse rate is 122. Respirations 16. GENERAL: The patient seems debilitated with progressive weight loss, cachexia. HEENT: Normocephalic, atraumatic. Anicteric. NECK: Supple grossly. PULMONARY: Diminished breath sounds without any wheezing. CARDIOVASCULAR: Tachycardia. ABDOMEN: Soft. Tenderness generally with some guarding. EXTREMITIES: No cyanosis or edema. NEUROLOGIC: Patient seems weak, but not in any distress. Moving all extremities without any focal deficit. LABORATORY: WBC is 4.5, hemoglobin is 7.8, hematocrit 23.8, and platelets is 59. She has a neutrophil of 1.6. There is only 1 band. Chemistry, sodium is 132, potassium 3.6, chloride 99, bicarb 23, BUN is 25, creatinine 0.7, glucose is 115. AST/ALT is 85 and 42 respectively. Alkaline phosphatase is 199. B12 628. Folic acid is 16. IMAGING: Brain CT otherwise unremarkable. Chest x-ray as mentioned. IMPRESSIONS 1. Pancytopenia. This is most likely secondary to her B-cell lymphoma with bone marrow depression most likely. 2. Progressive decline with adult failure to thrive, malnutrition, with albumin level 1.7. 3. Anemia with induced symptomatic shortness of breath and chest pain, possible with history of cardiomyopathy. PLAN: Blood transfusion. Decrease IV fluids when the transfusion is done. Consultation with Dr. Josias Lainez, tank truck engine mechanic. CT of chest, abdomen, and pelvis, and lumbar spine per daughter, who requested for complete workup. Unable to get MRI due to defibrillator. Discussed with patient and daughter regarding plan of care. This is an integrated situation, where the patient does not want anything else done, but the daughter insists on doing diagnostic test. We will continue with the workup. Blood transfusion. Await Dr. Lainez to see the patient. I absolutely recommended comfort palliative measure, but this is up to the patient and her family particularly her daughter to guide our care on this very ill, frail patient. Job#: [id number] CQ
[2017-06-25] MEDS: HYDROCODONE/APAP 5MG-325MG TAB PO PRN (04:35)
[2017-06-25] MEDS: SODIUM CHLORIDE 0.9% 1000ML 1,000 ML IV SCH ×2 (05:05→14:14)
[2017-06-25 06:39] LABS: BASOPHILS # (AUTO) 0.1 (0.0-0.1); BASOPHILS % 2.5 % (0.0-1.0); EOSINOPHILS # (AUTO) 0.1 (0.0-0.4); EOSINOPHILS % 2.1 % (0.0-6.0); LYMPHOCYTES # (AUTO) 0.2 (1.0-3.2); LYMPHOCYTES % 6.4 % (18.0-39.1); MEAN CORPUSCULAR HEMOGLOBIN 29.4 pg (28-32); MEAN CORPUSCULAR HGB CONC 31.8 g/dL (31-35); MEAN CORPUSCULAR VOLUME 92.6 fL (81-99); MONOCYTES # (AUTO) 0.9 (0.2-0.8); MONOCYTES % 31.4 % (4.4-11.3); NEUTROPHILS # (AUTO) 1.2 (2.1-6.9); NEUTROPHILS % 43.1 % (38.7-80.0); PLATELET COUNT 53 x10e3/uL (140-360); RED BLOOD COUNT 2.31 x10e6/uL (3.6-5.1); RED CELL DISTRIBUTION WIDTH 15.8 % (11.7-14.4)
[2017-06-25 06:47] LABS: HEMATOCRIT 21.4 % (34.2-44.1); HEMOGLOBIN 6.8 g/dL (12.0-16.0)
[2017-06-25 07:01] LABS: ANION GAP 8.9 mmol/L (8-16); BLOOD UREA NITROGEN 12 mg/dL (7-26); BUN/CREATININE RATIO 19 (6-25); CALCIUM 8.4 mg/dL (8.4-10.2); CARBON DIOXIDE 21 mmol/L (22-29); CHLORIDE 116 mmol/L (98-107); CREATININE, SERUM 0.62 mg/dL (0.57-1.11); EST GLOMERULAR FILTRATION RATE > 60 ML/MIN (60-); GLUCOSE 79 mg/dL (74-118); POTASSIUM 3.9 mmol/L (3.5-5.1); SODIUM 142 mmol/L (136-145)
[2017-06-25 07:49] VITALS: BP 110/65
[2017-06-25 07:55] VITALS: BP 98/57
[2017-06-25] MEDS: KETOROLAC TROMETHAMINE 30 MG/ML VIAL IV PRN ×4 (08:48→22:46)
[2017-06-25] MEDS: PANTOPRAZOLE 40 MG 10ML VIAL IV SCH (08:56)
[2017-06-25] MEDS ORDERED: LISINOPRIL 2.5 MG TAB PO SCH (09:00)
[2017-06-25] MEDS ORDERED: DOCUSATE SODIUM 100 MG CAP PO SCH (09:00)
[2017-06-25] MEDS ORDERED: VALACYCLOVIR HCL 500 MG TAB PO SCH (09:00)
[2017-06-25] MEDS ORDERED: FENTANYL 12MCG/HR PATCH TD SCH (09:15)
[2017-06-25 11:54] VITALS: BP 103/65
[2017-06-25 15:57] VITALS: BP 129/70
[2017-06-25] MEDS ORDERED: FUROSEMIDE INJ 10 MG/ML 4 ML VIAL IV ONE (16:45)
[2017-06-25] MEDS: METOPROLOL SUCCINATE 25 MG TAB XL PO SCH (17:00)
--- NOTE | 2017-06-25 19:53 | Diagnostic Imaging Report ---
EXAM: CT Chest, Abdomen and Pelvis WITH contrast INDICATION: \S\PAIN \S\[id number] \S\1845 \S\Y COMPARISON: CT dated 10/22/2015 TECHNIQUE: Chest, abdomen and pelvis were scanned utilizing a multidetector helical scanner from the lung apex to the pubic symphysis after administration of IV contrast. Coronal and sagittal reformations were obtained. Routine protocol was performed. Scan was performed when during portal venous phase. IV CONTRAST: 100 mL of Isovue-370 ORAL CONTRAST: Water COMPLICATIONS: None RADIATION DOSE: Total DLP: 575.1 mGy*cm Estimated effective dose: (DLP x 0.015 x size factor) mSv CTDIvol has been reviewed. It is below the limits set by the Radiation Protocol Committee (RPC). FINDINGS: LINES and TUBES: Triple lead left chest wall cardiac device in place. Ku catheter. LUNGS AND AIRWAYS: Mild biapical scarring. 4 mm right upper lobe nodule. Airways are normal. PLEURA: Trace bilateral pleural effusions. Left upper lobe pleural irregularity. HEART AND MEDIASTINUM: The thyroid gland is normal. No mediastinal or hilar lymphadenopathy. Left axillary lymph nodes measuring up to 2 cm in short axis. Left supraclavicular conglomerate of lymph nodes measuring over 1 cm in short axis (series 5, image 9). The heart is normal in size.. There is no pericardial effusion. HEPATOBILIARY: No focal hepatic lesions. No biliary ductal dilation. GALLBLADDER: No radio-opaque stones or sludge. Mild wall thickening. SPLEEN: Splenomegaly. PANCREAS: No focal masses or ductal dilatation. ADRENALS: No adrenal nodules KIDNEYS/URETERS: Kidneys enhance symmetrically. No hydronephrosis. No cystic or solid mass lesions. No stones. GI TRACT: No abnormal distention, wall thickening, or evidence of bowel obstruction. PELVIC ORGANS/BLADDER: Air-fluid level within bladder with a Ku catheter in place. Hysterectomy. LYMPH NODES: No lymphadenopathy. VESSELS: Unremarkable. PERITONEUM / RETROPERITONEUM: No free air. Small volume pelvic ascites. BONES: L1 vertebral body compression deformity with vertebroplasty. Mild unchanged central L4 superior end plate compression SOFT TISSUES: Unremarkable. IMPRESSION: Partially imaged left supraclavicular conglomerate of lymph nodes. There is also left axillary lymphadenopathy, concerning for disease recurrence. Trace bilateral pleural effusions. Nonspecific 4 mm right upper lobe lung nodule. Recommend attention on follow-up examination. No acute inflammatory process in the abdomen/pelvis. Small volume pelvic ascites. No abdominal or pelvic lymphadenopathy. Signed by: Dr. Endy Lang MD on 06/25/2017 7:49 PM
[2017-06-25 19:56] VITALS: BP 148/79
[2017-06-25] MEDS ORDERED: HYDROCODONE/APAP 5MG-325MG TAB PO PRN (20:30)
[2017-06-25] MEDS ORDERED: MAGNESIUM/ALUMINUM/SIMETHICONE 30 ML UDC PO PRN (20:45)
[2017-06-25] MEDS ORDERED: IOPAMIDOL 370 MG/ML 200 ML INFUS..BTL INJ ONE (21:35)
[2017-06-25] MEDS ORDERED: SODIUM CHLORIDE 0.9% 50ML 50 ML ONE (21:35)
[2017-06-26] MEDS ORDERED: PANTOPRAZOLE SOD 40 MG TABEC PO SCH (07:30)
== END 2017-06-25 22:57 | disposition hospice, home (50) | DRG 841 ==
LOC: ER 19:20 → ERHOLD 23:39 → IMCU 06-24 → OBSVTOIN 06-24 09:36 → MED/SURG2 06-24 14:54
PROVIDERS: ADMIT Internal Medicine; ATTEND Internal Medicine
DX: D61.82 Myelophthisis (principal); C83.30 Diffuse large B-cell lymphoma, unspecified site; E46 Unspecified protein-calorie malnutrition; E87.1 Hypo-osmolality and hyponatremia; Z68.1 Body mass index [BMI] 19.9 or less, adult; I50.9 Heart failure, unspecified; R62.7 Adult failure to thrive; G47.00 Insomnia, unspecified; G62.0 Drug-induced polyneuropathy; T45.1X5A Adverse effect of antineoplastic and immunosuppressive drugs, initial encounter; R53.1 Weakness; Z95.810 Presence of automatic (implantable) cardiac defibrillator; F32.9 Major depressive disorder, single episode, unspecified; R59.1 Generalized enlarged lymph nodes; F31.9 Bipolar disorder, unspecified; F20.9 Schizophrenia, unspecified
CPT/HCPCS: 36415; 51700; 70470; 71045; 71260; 74177; 80048; 80053; 81001; 82607; 82746; 83518; 83540; 83605; 84466; 85025; 87040; 87070; 87086; 87400; 93005; 93041; 96360; 96365; 96374; 99285; G0378; J0696; J1100; J1642; J1885; J1940; J7030; Q9967